=== PATIENT | female | born 1990 | race Caucasian/White ===

== ENCOUNTER 2022-09-20 00:41 | Emergency (ER) | payer SELFPAY ==
[2022-09-20 00:51] VITALS: BP 118/79; PULSE 110; RESP 18; TEMP 37.1; O2SAT 96; BMI 41.5
--- NOTE | 2022-09-20 01:19 | W.ED.SKABFB ---
HPI - Skin/Abscess/Foreign Bdy General: Chief complaint: Skin/Abscess/Foreign Body Stated complaint: bug sting/ left arm Time Seen by Provider: 09/20/22 00:43 History of Present Illness: 32-year-old female comes in today with an area of redness to the left forearm extending out from an insect sting that occurred 3 days ago. Patient reports minimal fever. Patient appears nontoxic. Patient did admit that she had dug at the bite trying to get the stinger out with a knife when it was stung. Patient cannot recall her last tetanus shot. Patient appears in minimal pain. Associated symptoms: Deny fever(s) Review of Systems Const: Denies: fever(s) Musc: Reports: extremity pain and extremity swelling Skin/Breast: Reports: erythema Physical Exam Const: COMMON NORMALS: alert HENMT: COMMON NORMALS: normocephalic HEAD & SCALP: normocephalic MOUTH: Normal oral and palatal mucosa present Neck/C-Spine: COMMON NORMALS: full ROM Resp: COMMON NORMALS: normal respiratory effort and clear to auscultation bilaterally AUSCULTATION: clear to auscultation bilaterally Cardio: COMMON NORMALS: regular rate RATE: regular rate Extremity: LEFT UPPER EXTREMITY: Yes lower arm (Punctate lesion surrounded by erythematous large area) Neuro: SENSORIUM/ORIENTATION: Yes alert Skin: LESIONS: lesion noted (Left lateral forearm surrounding redness 20 cm) Course Vital Signs: Vital signs: Vital Signs Temperature 98.7 F 09/20/22 01:45 Pulse Rate 110 H 09/20/22 01:45 Respiratory Rate 18 09/20/22 01:45 Blood Pressure 118/79 09/20/22 01:45 Pulse Oximetry 96 09/20/22 01:45 MDM - Skin/Abscess/Foreign Bdy Medicial Decision Making 32-year-old female comes in today with insect bite to her left forearm from approximately 3 days ago. Patient been seen by emergency department last night and Isabel and was told it was a local reaction to the insect bite. Patient came here today due to increasing redness and a temperature. Patient has a large area of redness with a central punctate lesion as bull's-eye in appearance. Differential diagnosis includes local reaction insect bite, cellulitis, abscess. No sign of abscess was noted at this time. Patient might have some cellulitis since she was digging at the wound with a knife we will go ahead and cover with antibiotics. Patient was given 1 dose of dexamethasone due to the redness and swelling. Recommend Tylenol ibuprofen for discomfort and follow-up with primary care. Discharge Plan Discharge Patient Disposition: Home Clinical Impression: Insect bite or sting Cellulitis Qualifiers: Site of cellulitis: extremity Site of cellulitis of extremity: upper extremity Laterality: left Qualified Code(s): L03.114 - Cellulitis of left upper limb Condition: Stable Prescriptions: New amoxicillin-pot clavulanate 875-125 mg tablet 1 tab PO BID Qty: 14 0RF Discharge Orders: Discharge ED (Routine); Ordered 09/20/22 Ordered By: Amarjit Napoles Discharge Diet: Usual diet Discharge Activity: Increase activity as tolerated Patient Instructions: Cellulitis (ED) Activity Restrictions/Additional Instructions: Use Benadryl as needed for itching and ibuprofen or Tylenol for pain. Take oral antibiotic 1 tablet twice a day for the next 7 days. Follow-up with primary care in 3 to 5 days for recheck. Return to ED for new concerns. Coding Level of Care Code ED [employer] [facility] for [facility] Ge[facility]
[2022-09-20] MEDS: amoxicillin-clav 875-125 mg Tablet 1 TAB PO (01:39)
[2022-09-20] MEDS: dexamethasone 4 mg Tablet 10 MG PO (01:40)
[2022-09-20 01:45] VITALS: BP 118/79; PULSE 110; RESP 18; TEMP 37.1; O2SAT 96
== END 2022-09-20 01:46 | disposition home or self-care (01) ==
PROVIDERS: Emergency Provider Nurse Practitioner Family
DX: T63.481A Toxic effect of venom of other arthropod, accidental (unintentional), initial encounter (principal); L03.114 Cellulitis of left upper limb
CPT/HCPCS: 99283; J8540